=== PATIENT | female | born 1970 | race Caucasian/White ===

== ENCOUNTER 2024-04-19 14:34 | Observation (INO) | payer BC ==
[2024-04-19 15:07] LABS: BASOPHILS ABSOLUTE AUTO 0.02 K/uL (0.00-0.20); BASOPHILS PERCENT AUTO 0.1 % (0.0-1.0); EOSINOPHILS ABSOLUTE AUTO 0.01 K/uL (0.00-0.45); EOSINOPHILS PERCENT AUTO 0.1 % (0.0-6.0); HEMATOCRIT 44.1 % (37.0-47.0); HEMOGLOBIN 15.1 g/dL (12.0-16.0); IMMATURE GRAN ABSOLUTE AUTO 0.02 K/uL (0.00-0.05); IMMATURE GRAN PERCENT AUTO 0.1 % (0.0-0.4); LYMPHOCYTES ABSOLUTE AUTO 2.51 K/uL (1.00-4.80); LYMPHOCYTES PERCENT AUTO 18.3 % (24.0-44.0); MEAN CORPUSCULAR HEMOGLOBIN 30.9 pg (28.0-32.0); MEAN CORPUSCULAR HGB CONC 34.2 g/dL (32.0-36.0); MEAN CORPUSCULAR VOLUME 90.4 fL (83.0-99.0); MEAN PLATELET VOLUME 8.7 fL (9.4-12.3); MONOCYTES ABSOLUTE AUTO 0.98 K/uL (0.00-0.80); MONOCYTES PERCENT AUTO 7.1 % (0.0-8.0); NEUTROPHILS ABSOLUTE AUTO 10.21 K/uL (1.80-7.70); NEUTROPHILS PERCENT AUTO 74.3 % (41.0-71.0); PLATELET COUNT,PLT 421 K/uL (150-400); RED BLOOD CELL COUNT 4.88 M/uL (4.10-5.30); WHITE BLOOD CELL COUNT,WBC 13.75 K/uL (3.9-11.3)
[2024-04-19 15:35] LABS: ALANINE AMINOTRANSFERASE,ALT 36 IU/L (14-63); ALBUMIN 4.2 g/dL (3.4-5.0); ALKALINE PHOSPHATASE 100 U/L (46-116); ASPARTATE AMNIOTRANSFERASE,AST 18 IU/L (15-37); BILIRUBIN TOTAL 0.3 mg/dL (0.2-1.0); BLOOD UREA NITROGEN,BUN 60 mg/dL (7.0-18.0); CALCIUM 11.1 mg/dL (8.5-10.1); CARBON DIOXIDE,CO2 17.5 mmol/L (21.0-32.0); CHLORIDE,CL 96 mmol/L (98-107); CREATININE 3.4 mg/dL (0.6-1.0); GLUCOSE RANDOM 173 mg/dL (74-106); LIPASE 66 U/L (16-77); POTASSIUM,K 4.6 mmol/L (3.5-5.1); PROTEIN TOTAL,TP 8.4 g/dL (6.4-8.2); SODIUM,NA 127 mmol/L (136-145)
[2024-04-19] MEDS: Ondansetron 4 MG/2 ML SDV IVPUSH ONE (15:39)
[2024-04-19 15:40] LABS: ESTIMATED GFR 15 mL/min (>60)
[2024-04-19] MEDS: Lactated Ringers 1,000 ML IV ONE (17:49)
[2024-04-19] MEDS ORDERED: Acetaminophen 325 MG Tab PO PRN (19:14)
[2024-04-19] MEDS ORDERED: Acetaminophen 650 MG Supp RECTAL PRN (19:14)
[2024-04-19] MEDS ORDERED: Polyethylene Glycol 3350 Powder 17 GM Packet PO PRN (19:14)
[2024-04-19] MEDS ORDERED: Melatonin 3 MG Tab PO PRN (19:14)
[2024-04-19] MEDS ORDERED: Albuterol/Ipratropium 3.0-0.5 MG/3 ML Neb Soln NEB PRN (19:14)
[2024-04-19] MEDS ORDERED: Sodium Chloride 0.9% 1,000 ML IV SCH (19:15)
[2024-04-19 20:22] LABS: MAGNESIUM 2.4 mg/dL (1.8-2.4); PHOSPHORUS 4.1 mg/dL (2.6-4.7)
[2024-04-19 20:36] LABS: HEMOGLOBIN A1C 6.3 %
[2024-04-19 21:04] LABS: BACTERIA,URINE 1+ (NEGATIVE); EPITHELIAL CELLS,URINE MODERATE (NONE-FEW); RBC,URINE 0-2 (0-2/HPF); WBC,URINE 0-1 (0-5/HPF)
[2024-04-19] MEDS: Pantoprazole 40 MG in Sodium Chloride 0.9% 10 ML IVPUSH SCH (21:09)
[2024-04-19] MEDS: Ondansetron 4 MG/2 ML SDV IVPUSH PRN (21:09)
[2024-04-19] MEDS: Sodium Chloride 0.9% 1,000 ML IV STA (21:13)
[2024-04-19] MEDS ORDERED: Prochlorperazine 10 MG/2 ML SDV IM PRN (23:26)
[2024-04-20 04:18] LABS: APPEARANCE,URINE SLT CLOUDY; BILIRUBIN,URINE NEGATIVE (NEGATIVE); COLOR,URINE YELLOW; GLUCOSE,URINE NEGATIVE (NEGATIVE); KETONES,URINE NEGATIVE (NEGATIVE); PROTEIN,URINE NEGATIVE (NEGATIVE)
[2024-04-20 04:19] LABS: LEUKOCYTE ESTERASE,URINE NEGATIVE (NEGATIVE); NITRITE,URINE NEGATIVE (NEGATIVE); OCCULT BLOOD,URINE NEGATIVE (NEGATIVE); UROBILINOGEN,URINE <2.0 EU/dL (<2.0)
[2024-04-20 06:26] LABS: BASOPHILS ABSOLUTE AUTO 0.02 K/uL (0.00-0.20); BASOPHILS PERCENT AUTO 0.2 % (0.0-1.0); EOSINOPHILS ABSOLUTE AUTO 0.02 K/uL (0.00-0.45); EOSINOPHILS PERCENT AUTO 0.2 % (0.0-6.0); HEMATOCRIT 35.7 % (37.0-47.0); HEMOGLOBIN 12.6 g/dL (12.0-16.0); IMMATURE GRAN ABSOLUTE AUTO 0.03 K/uL (0.00-0.05); IMMATURE GRAN PERCENT AUTO 0.2 % (0.0-0.4); LYMPHOCYTES ABSOLUTE AUTO 4.53 K/uL (1.00-4.80); LYMPHOCYTES PERCENT AUTO 36.4 % (24.0-44.0); MEAN CORPUSCULAR HEMOGLOBIN 32.1 pg (28.0-32.0); MEAN CORPUSCULAR HGB CONC 35.3 g/dL (32.0-36.0); MEAN CORPUSCULAR VOLUME 90.8 fL (83.0-99.0); MEAN PLATELET VOLUME 8.7 fL (9.4-12.3); MONOCYTES ABSOLUTE AUTO 1.21 K/uL (0.00-0.80); MONOCYTES PERCENT AUTO 9.7 % (0.0-8.0); NEUTROPHILS ABSOLUTE AUTO 6.65 K/uL (1.80-7.70); NEUTROPHILS PERCENT AUTO 53.3 % (41.0-71.0); PLATELET COUNT,PLT 387 K/uL (150-400); RED BLOOD CELL COUNT 3.93 M/uL (4.10-5.30); WHITE BLOOD CELL COUNT,WBC 12.46 K/uL (3.9-11.3)
[2024-04-20 06:43] LABS: CALCIUM 9.8 mg/dL (8.5-10.1); CARBON DIOXIDE,CO2 17.4 mmol/L (21.0-32.0); CREATININE 2.2 mg/dL (0.6-1.0); EST CRCL DRUG DOSING (CG) 27.05 mL/min; POTASSIUM,K 4.3 mmol/L (3.5-5.1)
[2024-04-20] MEDS: Sodium Chloride 0.9% 1,000 ML IV ONE ×2 (10:47→12:07)
[2024-04-20] MEDS: Benzonatate 100 MG Cap PO SCH (12:07)
[2024-04-20] MEDS ORDERED: Benzonatate 100 MG Cap PO SCH (14:00)
[2024-04-20 15:03] LABS: CALCIUM 9.4 mg/dL (8.5-10.1); CARBON DIOXIDE,CO2 18.5 mmol/L (21.0-32.0); CREATININE 1.7 mg/dL (0.6-1.0); POTASSIUM,K 4.5 mmol/L (3.5-5.1)
== END 2024-04-20 16:26 | disposition home or self-care (01) ==
LOC: MW.ED 14:34 → MW.MS 18:57 → MW.ED 19:36
PROVIDERS: ADMIT Family Medicine; ATTEND Family Medicine
DX: N17.9 Acute kidney failure, unspecified (principal); E87.1 Hypo-osmolality and hyponatremia; R73.9 Hyperglycemia, unspecified
CPT/HCPCS: 36415; 71046; 74176; 80048; 80053; 81001; 83036; 83690; 83735; 84100; 85025; 87428; 96361; 96374; 96375; 96376; 99285; A9270; G0378; J2405; J2470; J7030; J7120